=== PATIENT | male | born 1955 | race Caucasian/White ===

== ENCOUNTER 2016-12-10 01:10 | Emergency (ER) | payer OTHER ==
[~2016-12-10] VITALS: Ht 185.4 cm; Wt 108.9 kg
[~2016-12-10 01:10] MED LIST: LISINOPRIL/HCTZ PO
[2016-12-10 02:28] LABS: Urine RBC None Seen /hpf (0 - 3)
[2016-12-10 02:34] LABS: Basophils # (auto) 0 uL; Basophils % (auto) 0.4 % (0.0-2.0); Eosinophils # (auto) 0.1 uL; Eosinophils % (auto) 1.1 % (0.0-7.0); Hematocrit 42.9 % (41.0-53.0); Lymphocytes % (auto) 16.9 % (10.0-50.0); Mean Corpuscular Hemoglobin 31.8 pg (28.0-32.0); Mean Corpuscular Hgb Conc. 32.6 g/dL (32.0-36.0); Mean Corpuscular Volume 97.7 fL (80.0-100.0); Mean Platelet Volume 8.6 fL (7.4-10.4); Monocytes # (auto) 0.5 uL; Monocytes % (auto) 3.8 % (0.0-12.0); Neutrophils # (auto) 9.3 uL; Neutrophils % (auto) 77.8 % (37.0-80.0); Platelet Count (auto) 216 10^3/uL (140-450); Red Cell Distribution Width 14.2 % (11.6-16.0); White Blood Cell 11.9 10^3/uL (4.4-10.8)
[2016-12-10 02:45] LABS: Urine Bilirubin Negative (Negative); Urine Blood Negative /uL (Negative); Urine Color Yellow (Yellow); Urine Glucose Normal (Normal); Urine Ketone Negative (Negative); Urine Nitrite Negative (Negative); Urine Urobilinogen Normal (Negative); Urine pH 5.5 (5.0-8.0)
[2016-12-10 02:54] LABS: Albumin 3.5 g/dL (3.4-5.0); Anion Gap 9 (5-15); Aspartate Aminotransferase 12 U/L (15-37); BUN/Creatinine Ratio 27.6; Blood Urea Nitrogen 29 mg/dL (7-18); Carbon Dioxide 26 mmol/L (21-32); Chloride 105 mmol/L (98-107); GFR African American 93 mL/min; GFR Non-African American 77 mL/min; Glucose 123 mg/dL (74-106); Potassium 3.7 mmol/L (3.5-5.1); Sodium 140 mmol/L (136-145)
[2016-12-10 02:57] LABS: Alkaline Phosphatase 39 U/L (45-117); Bilirubin, Total 0.4 mg/dL (0.2-1.0); Total Protein 6.8 g/dL (6.4-8.2)
[2016-12-10 03:01] LABS: INR 1.06 (0.9-1.15); Partial Thromboplastin Time 22.9 sec (22.64-33.71); Prothrombin Time 10.9 sec (9.37-12.3)
[2016-12-10] MEDS ORDERED: LORazepam 2MG/ML-1ML VIAL IV ONE ×3 (07:30→12:15)
[2016-12-10] MEDS ORDERED: HYDR-2652 PO (07:56)
[2016-12-10] MEDS ORDERED: ISOS10TA2 PO (07:56)
[2016-12-10] MEDS ORDERED: PAR20T PO (07:56)
[2016-12-10] MEDS ORDERED: ATO40T PO (07:56)
[2016-12-10] MEDS ORDERED: LOR05T PO (07:56)
[2016-12-10] MEDS ORDERED: LORazepam 2MG/ML-1ML VIAL ONE (09:41)
[2016-12-10] MEDS ORDERED: LEVETIRACETAM INJ 1,000 MG in SODIUM CHL 0.9% 100 ML IV ONE (10:00)
[2016-12-10 16:46] VITALS: BP 151/94
== END 2016-12-10 17:37 | disposition short-term general hospital (02) ==
LOC: EDBD 01:10 → ER 01:20
DX: S60.211A Contusion of right wrist, initial encounter (principal); S60.212A Contusion of left wrist, initial encounter; R41.82 Altered mental status, unspecified; G40.909 Epilepsy, unspecified, not intractable, without status epilepticus; F41.9 Anxiety disorder, unspecified; F12.10 Cannabis abuse, uncomplicated; I10 Essential (primary) hypertension; Z90.89 Acquired absence of other organs; Z98.890 Other specified postprocedural states; X58.XXXA Exposure to other specified factors, initial encounter; Y93.89 Activity, other specified; Y99.8 Other external cause status; Y92.89 Other specified places as the place of occurrence of the external cause
CPT/HCPCS: 36415; 70450; 71010; 73110; 80053; 80320; 81001; 82962; 84484; 85025; 85610; 85730; 93005; 94761; 96365; 96375; 96376; 99285; G0434; J1953; J2060; J7030

== ENCOUNTER 2019-06-15 16:33 | Inpatient (IN) | payer MEDICAID, OTHER ==
[~2019-06-15] VITALS: Ht 177.8 cm; Wt 82.1 kg
[~2019-06-15 16:33] MED LIST changes: +ATO40T PO; +HYDR50TA15 PO; +ISOS10TA2 PO; +LORA0.5T12 PO; +PAR20T PO
[2019-06-15 18:29] LABS: Basophils # (auto) 0.1 uL; Basophils % (auto) 0.7 % (0.0-2.0); Eosinophils # (auto) 0 uL; Hematocrit 49.1 % (41.0-53.0); Hemoglobin 16.7 g/dL (13.5-17.5); Lymphocytes # (auto) 1.4 uL; Lymphocytes % (auto) 14.6 % (10.0-50.0); Mean Corpuscular Hemoglobin 35.7 pg (28.0-32.0); Mean Corpuscular Hgb Conc. 34.1 g/dL (32.0-36.0); Mean Corpuscular Volume 104.6 fL (80.0-100.0); Monocytes # (auto) 1.1 uL; Monocytes % (auto) 11.8 % (0.0-12.0); Neutrophils # (auto) 6.9 uL; Neutrophils % (auto) 72.9 % (37.0-80.0); Nucleated Red Blood Cells % 0.1 %; Platelet Count (auto) 212 10^3/uL (140-450); Red Blood Cells 4.69 10^6/uL (4.5-5.90); Red Cell Distribution Width 14.3 % (11.8-14.3); White Blood Cell 9.4 10^3/uL (4.4-10.8)
[2019-06-15 18:47] LABS: Albumin 3.6 g/dL (3.4-5.0); BUN/Creatinine Ratio 11.7
[2019-06-15 18:52] LABS: Bilirubin, Total 1.5 mg/dL (0.2-1.0); Total Protein 6.8 g/dL (6.4-8.2)
[2019-06-15 18:54] LABS: INR 1.91 (0.9-1.15); Partial Thromboplastin Time 29.9 sec (23.64-32.05)
[2019-06-15] MEDS ORDERED: ASPirin-EC 81 mg tab PO ONE (19:30)
[2019-06-15] MEDS ORDERED: FUROSEMIDE 40 MG/4 ML VIAL IV ONE (19:30)
[2019-06-15] MEDS ORDERED: MORPHINE SULF INJ 2 MG/ML SYRINGE 1ML IV PRN (21:15)
[2019-06-15] MEDS ORDERED: TEMAZEPAM 15 MG CAP PO PRN (21:15)
[2019-06-15] MEDS ORDERED: ONDANSETRON HCL 4 MG/2 ML VIAL IV PRN (21:15)
[2019-06-15] MEDS ORDERED: cloNIDine HCL 0.1 MG TAB PO PRN (21:15)
[2019-06-15] MEDS ORDERED: NITROGLYCERIN 0.4 MG SL TAB SL PRN (21:15)
[2019-06-15] MEDS ORDERED: ISOSORBIDE DINITRATE 10 MG TAB PO SCH (22:00)
[2019-06-15] MEDS ORDERED: hydrALAZINE HCL 10 MG TAB PO SCH (22:00)
[2019-06-15 22:57] VITALS: BP 138/79
[2019-06-15] MEDS: FAMOTIDINE 20 MG TAB PO SCH (23:06)
[2019-06-15 23:41] VITALS: BP 129/73
--- NOTE | 2019-06-15 23:45 | NUR ---
Telemetry admit from ER OZIEL GUTIERREZ admitted to Telemetry unit. Patient oriented to [facility], primary RN, unit, room, bed, and unit policies regarding patient care and visiting hours. Patient now on continuous telemetry monitoring, tele box #50 and telemetry reading on arrival to unit is sinus tachycardia 107. Patient placed on bedside oxygen, weighed by bedscale and encouraged to call if they need something. All questions and concerns addressed, patient verbalized understanding. Bed in lowest locked position, call light within reach, side rails up x2, fall precautions in place. Will continue to monitor Q1hr and PRN.
--- NOTE | 2019-06-16 | NUR ---
Hospitalist spencer Hospitalist called in regards to patient wanting "something for indigestion". Waiting for call back. Continue care.
[2019-06-16] MEDS ORDERED: PHE100C PO ×2 (00:15)
[2019-06-16] MEDS ORDERED: CLON1TAB10 PO (00:15)
--- NOTE | 2019-06-16 00:26 | NUR ---
Hospitalist returned call JAYJAY Garcia returned call, updated on patient status and reason for call, no new orders received at this time. Continue care.
[2019-06-16 03:54] VITALS: BP 111/90
[2019-06-16] MEDS ORDERED: FUROSEMIDE 20 MG/2 ML VIAL IV SCH (06:00)
[2019-06-16 06:15] LABS: Albumin 3.2 g/dL (3.4-5.0); Calcium 8.8 mg/dL (8.5-10.1); Potassium 4.1 mmol/L (3.5-5.1)
[2019-06-16 06:35] LABS: Bilirubin, Total 1.1 mg/dL (0.2-1.0); Total Protein 6.1 g/dL (6.4-8.2)
--- NOTE | 2019-06-16 07:25 | NUR ---
Open Shift Note Received report on patient, awake and lying in bed. Patient shows no signs of distress at this time. Patient ambulated to restroom independently with a steady gait. Discussed POC with patient once returned from restroom. Patient verbalized understanding. Bed in lowest locked position, side rails up x2 and call light within reach. Will continue to monitor.
[2019-06-16 08:00] VITALS: BP 112/89
[2019-06-16 08:09] LABS: Eosinophils # (auto) 0 uL; Lymphocytes # (auto) 2.3 uL
[2019-06-16 08:16] LABS: Basophils # (auto) 0.1 uL; Basophils % (auto) 0.9 % (0.0-2.0); Eosinophils % (auto) 0.1 % (0.0-7.0); Hematocrit 44.3 % (41.0-53.0); Hemoglobin 15.7 g/dL (13.5-17.5); Lymphocytes % (auto) 20.7 % (10.0-50.0); Mean Corpuscular Hemoglobin 36.5 pg (28.0-32.0); Mean Corpuscular Hgb Conc. 35.3 g/dL (32.0-36.0); Mean Corpuscular Volume 103.3 fL (80.0-100.0); Monocytes # (auto) 0.7 uL; Monocytes % (auto) 6.5 % (0.0-12.0); Neutrophils % (auto) 71.8 % (37.0-80.0); Nucleated Red Blood Cells % 0.2 %; Platelet Count (auto) 161 10^3/uL (140-450); Red Blood Cells 4.29 10^6/uL (4.5-5.90); Red Cell Distribution Width 14.2 % (11.8-14.3); White Blood Cell 11.1 10^3/uL (4.4-10.8)
[2019-06-16] MEDS: FAMOTIDINE 20 MG TAB PO SCH (09:44)
--- NOTE | 2019-06-16 09:55 | NUR ---
Gave Morning BP Meds Before Orders Changed Administered morning dose of Hydralazine and Isosorbide but [facility]AR would not allow medication administration to be saved due to JAYJAY Collins changing orders. JAYJAY Collins aware patient received previous ordered medications, stated it is fine and just to make sure patient receives new ordered BP medication for night time dose.
[2019-06-16] MEDS ORDERED: PARoxetine 20 MG TAB PO SCH (10:00)
[2019-06-16] MEDS ORDERED: ASPirin 81 mg TAB PO SCH (10:00)
[2019-06-16] MEDS ORDERED: LISINOPRIL 5 MG TAB PO SCH (10:00)
[2019-06-16] MEDS ORDERED: CARVEDILOL 3.125 MG TAB PO SCH (10:00)
[2019-06-16 10:54] LABS: Cholesterol 98 mg/dL (< 200); HDL Cholesterol 34 mg/dL (40-59); LDL Cholesterol 55 mg/dL (< 100); Triglycerides 78 mg/dL (< 150)
[2019-06-16] MEDS ORDERED: ADENOSINE 69 MG in GIVE UN-DILUTED 0 ML IV STA (11:01)
[2019-06-16 11:32] LABS: Hepatitis A Ab IgM Negative; Hepatitis B Core IgM Negative; Hepatitis B Surface Antigen Negative (Negative); Hepatitis C Antibody Negative (Negative)
[2019-06-16 12:00] VITALS: BP 113/76
--- NOTE | 2019-06-16 12:20 | NUR ---
SS consult regarding transfer to [facility]. Per MD pt declining to transfer stating he wants to stay here. Pt is 64 yo and is under [facility]. Spoke with pt regarding order for transfer and explained that he has a right to exercise his right to transfer or not but because he is medically stable, is not a senior and does not have medicare if he does not transfer [facility] will not cover the cost of his stay. Further explained that if [facility] does not cover the reimbursement he will have to pay for his hospitalization. Pt then stated that he would transfer back to [facility] and to proceed with the transfer.
--- NOTE | 2019-06-16 13:00 | NUR ---
Contacted [facility] case management department ( [phone]) regarding transfer of pt back into network at 12:45pm. Spoke with sales data analyst Manny who stated that the assigned case management director was Kaitlynn. Requested clinical information for transfer as well as MD order. Faxed above information to [phone] attn: Kaitlynn. Informed [place] to notify me of assigned bed, number for report and belt picker time when all arrangments completed. MD and covering nurse notified of the above.
[2019-06-16] MEDS ORDERED: CLO01T PO (13:15)
[2019-06-16] MEDS ORDERED: FUR40I IV (13:15)
[2019-06-16] MEDS ORDERED: ASPI81CH43 PO (13:15)
[2019-06-16] MEDS ORDERED: NITR0.4S29 SL (13:15)
[2019-06-16] MEDS ORDERED: LISI-275 PO (13:15)
[2019-06-16] MEDS ORDERED: CAR3125T PO (13:15)
--- NOTE | 2019-06-16 14:51 | NUR ---
Paged Hospitalist For Discharge Transfer Order Paged Dr Koenig to put in orders for transfer to [facility] since patient is accepting. Awaiting call back.
--- NOTE | 2019-06-16 15:57 | NUR ---
Sales And Marketing Professional Spoke with Hospitalist Kd from oncology social worker stated that she spoke with Dr Koenig whom stated to give her "about an hour" to complete the discharge order.
--- NOTE | 2019-06-16 16:10 | NUR ---
Timur Collins Pageruddy Collins to inform her that stress test needs to be read in order to transfer to [place], Dennis stated we are waiting for Dr Ramesh to read it.
[2019-06-16 17:00] VITALS: BP 107/81
--- NOTE | 2019-06-16 17:09 | NUR ---
Spoke With Jaquan From [facility] [place] Spoke with watch case polisher from [facility]. Faxed over the discharge summary and last progress note from Dr Mason. [phone]. Still awaiting discharge order from Dr Koenig.
[2019-06-16] MEDS ORDERED: FUROSEMIDE 40 MG/4 ML VIAL IV SCH (18:00)
--- NOTE | 2019-06-16 18:46 | NUR ---
[facility] Transfer [facility] called and stated they are unable to read the stress test at this time, but they feel that the patient is stable for discharge due to no chest pain. Verbalized understanding.
--- NOTE | 2019-06-16 18:47 | NUR ---
[facility] Arranged Brake Tester [facility] called and stated the patient will be transferred to [facility] and pick up worker will be here at 1999. Patient will be going to room 626. Call and give report to [phone].
--- NOTE | 2019-06-16 19:45 | NUR ---
Report called and given to [place] [facility]. Informed RN of [facility].
--- NOTE | 2019-06-16 20:15 | NUR ---
Discharge Transfers Patient is being transferred to [facility]. Patient is to follow up with accepting doctor at the receiving facility. Patient accompanied with [facility], no distress noted. Tele monitor removed and sent to ICU. Meds held at pharmacy retuned to patient. All personal belongings with patient.
== END 2019-06-16 20:15 | disposition short-term general hospital (02) | DRG 190 ==
LOC: EDBD 16:33 → ER 16:41 → TELE 16:42 → TELE-WESTW 23:41
PROVIDERS: ADMIT Nurse Practitioner; ATTEND Internal Medicine Nephrology
DX: I21.A1 Myocardial infarction type 2 (principal); K72.00 Acute and subacute hepatic failure without coma; I50.43 Acute on chronic combined systolic (congestive) and diastolic (congestive) heart failure; I11.0 Hypertensive heart disease with heart failure; E87.1 Hypo-osmolality and hyponatremia; F12.90 Cannabis use, unspecified, uncomplicated; F32.9 Major depressive disorder, single episode, unspecified; F19.10 Other psychoactive substance abuse, uncomplicated; R00.0 Tachycardia, unspecified; F41.9 Anxiety disorder, unspecified; Z82.49 Family history of ischemic heart disease and other diseases of the circulatory system; Z86.73 Personal history of transient ischemic attack (TIA), and cerebral infarction without residual deficits; Z91.19 Patient's noncompliance with other medical treatment and regimen; Z95.0 Presence of cardiac pacemaker
CPT/HCPCS: 36415; 71045; 76705; 78452; 80053; 80061; 80074; 83880; 84484; 85025; 85610; 85730; 93005; 93017; 94761; 96365; 96375; 99291; G0378; J0153